=== PATIENT | male | born 1970 | race Caucasian/White ===

== ENCOUNTER → 2018-01-31 | Outpatient (CLI) | payer OTHER ==
[~2018-01-31] MED LIST: GADOBUTROL 7.5 MMOL/7.5 ML VIAL IV ONE
--- NOTE | 2018-01-31 09:19 | KCIC ---
MRI of the Brain/IACs without and with contrast 01/31/2018 Clinical History: Hearing loss within both ears.. Technique: Unenhanced T1-weighted sagittal and axial and FLAIR, T2-weighted and diffusion-weighted axial images of the brain were obtained. Thin section T1-weighted coronal and T2-weighted axial images through the IACs were obtained. After the intravenous administration of 7 cc of Gadavist, enhanced T1-weighted axial images of the brain were obtained. Additionally enhanced thin section T1-weighted axial and coronal images through the IACs were obtained. Findings:No previous imaging studies are available for comparison The ventricles and sulci are within normal limits in size and configuration. Patchy and several small focal areas of abnormally increased signal intensity are seen within the periventricular and subcortical white matter of both cerebral hemispheres along with the rona on the FLAIR and T2-weighted images. These have a nonspecific appearance but are felt to most likely represent areas of minimal small vessel ischemic disease. No acute parenchymal abnormality is seen. No extra-axial fluid collection is noted. There is no MRI evidence of acute ischemia/infarction. No abnormal area contrast enhancement is seen. MRI images through the IACs are within normal limits. No abnormal soft tissue mass or area of abnormal contrast enhancement is seen. Mild to moderate mucosal thickening is seen throughout the paranasal sinuses a 3 cm mucous retention cyst seen on the right maxillary sinus. A 1.5 cm mucous retention cyst is involving left maxillary sinus there are small to moderate-sized mastoid effusions, left greater than right. Normal flow voids are seen within the major vascular structures surrounding the brain parenchyma. Impression: Essentially negative study. Electronically signed by: Benjamin Boyd MD (01/31/2018 9:16 AM) [id number]
== END | disposition home or self-care (01) ==
LOC: KCIC MRI 07:50
PROVIDERS: ATTEND Family Medicine
DX: H74.8X3 Other specified disorders of middle ear and mastoid, bilateral (principal); J34.1 Cyst and mucocele of nose and nasal sinus
CPT/HCPCS: 70553; A9585